=== PATIENT | female | born 1955 | race Caucasian/White ===

== ENCOUNTER → 2017-09-20 | Outpatient (CLI) | payer OTHER ==
[~2017-09-20] MED LIST: ALLOPURINOL 30300 M2 PO; AMBIEN 5 MG TABL5 M1 PO; ARMOUR THYROID60 M1 PO; CLEOCIN HCL150 MG PO; DIFLUCAN200 MG PO; HEPARIN SO1000 UNIT2 SUBQ; KLOR-CON 1010 MEQ PO; LEXAPRO20 MG PO; LOFIBRA134 MG PO; MAXZIDE-25 MG1 EACH PO; NEURONTIN 300300 M1 PO; ULTRACET TABLET1 TAB PO
== END ==
LOC: M.RAD 09:00
DX: R92.8 Other abnormal and inconclusive findings on diagnostic imaging of breast (principal); Z85.3 Personal history of malignant neoplasm of breast; Z17.0 Estrogen receptor positive status [ER+]

== ENCOUNTER → 2018-03-23 | Outpatient (CLI) | payer OTHER | LOC: M.RAD 10:28 | DX: R92.8 Other abnormal and inconclusive findings on diagnostic imaging of breast (principal) ==

== ENCOUNTER → 2018-12-24 | Outpatient (CLI) | payer OTHER | LOC: M.RAD 08:55 | DX: M85.89 Other specified disorders of bone density and structure, multiple sites (principal); C50.911 Malignant neoplasm of unspecified site of right female breast; Z79.811 Long term (current) use of aromatase inhibitors ==

== ENCOUNTER → 2019-04-03 | Outpatient (CLI) | payer OTHER | LOC: M.RAD 10:34 | DX: R92.1 Mammographic calcification found on diagnostic imaging of breast (principal); C50.911 Malignant neoplasm of unspecified site of right female breast; Z98.890 Other specified postprocedural states ==

== ENCOUNTER → 2020-03-12 | Outpatient (CLI) | payer OTHER ==
[2020-03-12 10:16] LABS: POTASSIUM 3.5 mmol/L (3.5-5.1)
== END ==
LOC: M.LAB 05:27
PROVIDERS: ATTEND Anesthesiology
DX: E87.6 Hypokalemia (principal); E11.9 Type 2 diabetes mellitus without complications

== ENCOUNTER → 2020-04-06 | Outpatient (CLI) | payer OTHER | LOC: M.RAD 09:49 | PROVIDERS: ATTEND Internal Medicine Hematology & Oncology | DX: C50.911 Malignant neoplasm of unspecified site of right female breast (principal); N64.89 Other specified disorders of breast ==

== ENCOUNTER → 2020-10-02 | Outpatient (CLI) | payer OTHER | LOC: M.ULTRA 09:14 | PROVIDERS: ATTEND Family Medicine | DX: K76.0 Fatty (change of) liver, not elsewhere classified (principal); K80.00 Calculus of gallbladder with acute cholecystitis without obstruction; R74.01 Elevation of levels of liver transaminase levels ==

== ENCOUNTER 2021-01-05 15:22 | Inpatient (IN) | payer OTHER ==
[~2021-01-05] VITALS: Ht 172.7 cm; Wt 72.3 kg
[2021-01-05 15:26] VITALS: BP 127/57
[2021-01-05 15:57] LABS: ABSOLUTE MONOCYTES 0.6 thou/uL (0.0-1.2); ABSOLUTE NEUTROPHILS 4.4 thou/uL (1.6-8.1); BASOPHILS 0.3 %; HEMATOCRIT 37.4 % (37.0-47.0); HEMOGLOBIN 13.1 gm/dL (12.0-15.0); LYMPHOCYTES 16.6 %; MCH 34.4 pg (26.0-34.0); MCV 98.1 fL (80.0-100.0); MONOCYTES 10.4 %; MPV 7.6 fl. (7.2-11.1); NUCLEATED RBCS 0 /100WBC; PLATELET COUNT* 138 thou/uL (150-400); POLYS 72.7 %; RBC 3.82 mil/uL (4.20-5.00)
[2021-01-05 16:10] LABS: CALCIUM 9.1 mg/dL (8.5-10.1); CREATININE 1.5 mg/dL (0.6-1.3); POTASSIUM 3.4 mmol/L (3.5-5.1)
[2021-01-05 16:26] LABS: ALBUMIN 3.7 g/dL (3.4-5.0); TOTAL BILIRUBIN 0.7 mg/dL (<0.1-1.0); TOTAL PROTEIN 8.1 g/dL (6.4-8.2)
[2021-01-05 20:00] VITALS: BP 121/59
[2021-01-05 20:15] VITALS: BP 117/79
[2021-01-05 23:47] VITALS: BP 115/58
[2021-01-06 05:01] VITALS: BP 114/61
--- NOTE | 2021-01-06 07:48 | NUR ---
PT ADMITTED TO ROOM 106 DURING INFORMATION SYSTEMS DIRECTOR; VSS, ON 15L O2 NON-REBREATHER, SR ON TELE, BEDREST FOR O2 DEMANDS, UP TO COMODE IS OK IF TOLERATED. SHE IS ABLE TO COMMUNICATE HER NEEDS TO STAFF WITH MINOR DIFFICULTY; SHE IS FORGETFUL AND A LITTLE CONFUSED (SHE FREQUENTLY REMOVES HER HEATED HIGH FLOW). SHE IS ON HEATED HIGH FLOW CANULA NOW.
[2021-01-06 08:40] VITALS: BP 124/66
--- NOTE | 2021-01-06 09:04 | NUR ---
PT IS ON ISO PRECAUTIONS D/T COVID. PT LIVES WITH FRIEND AMALIA, BRYSON SPK WITH AMALIA WHO INDICATED PT "MOVED IN" WITH HER AFTER PT "LOST HER JOB." IS NORMALLY ACTIVE AND INDEPENDENT AND USES NO DMES. ACCORDING TO SHARRI, SHE DOESNT RECALL PT USING SNF OR HH IN THE PAST; HOWEVER, PT USED OUTPATIENT THERAPY POST BREAST CA DX. CM TO CONT TO FOLLOW.
[2021-01-06 10:40] LABS: CALCIUM 8.6 mg/dL (8.5-10.1); CREATININE 1.2 mg/dL (0.6-1.3); MAGNESIUM 1.8 mg/dL (1.8-2.4); POTASSIUM 3.4 mmol/L (3.5-5.1)
[2021-01-06 12:01] VITALS: BP 121/57
--- NOTE | 2021-01-06 14:12 | EKG ---
[place] [address] ELECTROCARDIOGRAM REPORT Name: KEON YAN Room: [address] ADM IN .R.#: [id number] Admission: 01/05/21 Attend Phys: Jenae Bautista Discharge: Date of : 59 Date of Service: 01/05/21 1559 Report #: [id number] THIS REPORT FOR: //name// [facility] ED Test Date: 2021-01-05 Test Time: 15:59:33 Pat Name: KEON YAN Department: Room: [facility] Gender: F Project Management Professional: JOSE LUIS : 1955 Requested By: Morgan Fan Order Number: [id number] MD: Asa Rosado Measurements Intervals [place] Rate: 75 P: 38 CT: 167 QRS: 11 QRSD: 98 T: 35 QT: 411 QTc: 460 Interpretive Statements Sinus rhythm Inferior infarct, old cannot be excluded Compared to ECG 04/06/2015 07:48:34 No significant changes Electronically Signed On 01-06-2021 14:12:41 CDT by Asa Rosado [email or web address] <ELECTRONICALLY SIGNED> By: Asa Rosado MD, FAC 01/06/21 1412 1559 1559 Asa Rosado MD, FAC /EPI
[2021-01-06 17:53] VITALS: BP 135/61
[2021-01-06 20:59] VITALS: BP 131/52
[2021-01-07 01:25] VITALS: BP 124/53
[2021-01-07 04:25] VITALS: BP 129/93
--- NOTE | 2021-01-07 06:57 | NUR ---
PT IS ABLE TO COMMUNICATE HER NEEDS TO STAFF WITH MINOR DIFFICULTY; SHE CAN BE CONFUSED AT TIMES. SHE HAS DENIED THE NEED FOR PAIN MEDICATION UP TO THIS TIME. [facility]. SHE HAS SOME TREMOURS NOW; LIKELY D/T STEROIDS. HEATED GATO FLOW O2 MAINTAINED.
[2021-01-07 11:47] LABS: ABSOLUTE LYMPHOCYTES 0.6 thou/uL (0.8-5.3); ABSOLUTE MONOCYTES 0.5 thou/uL (0.0-1.2); ABSOLUTE NEUTROPHILS 5.2 thou/uL (1.6-8.1); BASOPHILS 0.1 %; HEMATOCRIT 33.5 % (37.0-47.0); HEMOGLOBIN 11.7 gm/dL (12.0-15.0); LYMPHOCYTES 9.4 %; MCH 34.1 pg (26.0-34.0); MCHC 35.1 g/dL (28.0-37.0); MCV 97.3 fL (80.0-100.0); MONOCYTES 7.7 %; MPV 7.7 fl. (7.2-11.1); NUCLEATED RBCS 0 /100WBC; PLATELET COUNT* 189 thou/uL (150-400); POLYS 82.8 %; RBC 3.44 mil/uL (4.20-5.00); RDW-CV 14.2 % (10.5-14.5); WBC 6.3 thou/uL (4.0-11.0)
[2021-01-07 11:51] LABS: CALCIUM 8.7 mg/dL (8.5-10.1); TOTAL BILIRUBIN 0.5 mg/dL (<0.1-1.0); TOTAL PROTEIN 7.1 g/dL (6.4-8.2)
[2021-01-07 11:54] LABS: POTASSIUM 2.7 mmol/L (3.5-5.1)
[2021-01-07 13:06] VITALS: BP 124/65
--- NOTE | 2021-01-07 13:54 | NUR ---
1156 informed of critical labs. 1222 New orders recieved
[2021-01-07 14:26] LABS: MAGNESIUM 1.8 mg/dL (1.8-2.4)
--- NOTE | 2021-01-07 15:44 | NUR ---
Md was paged the patient is c/o left shoulder and leg pain 03/21 and is c/o anxiety.
--- NOTE | 2021-01-07 16:03 | NUR ---
Barriers to discharge remains on O2 with SOA. May need O2 at home, will continue to follow for discharge needs.
[2021-01-07 17:02] VITALS: BP 116/68
[2021-01-07 20:19] VITALS: BP 107/72
[2021-01-08] VITALS (11 sets, daily range): BP systolic 117–155; BP diastolic 60–76
--- NOTE | 2021-01-08 05:27 | NUR ---
PT IS ABLE TO COMMUNICATE HER NEEDS TO STAFF WITH MINOR DIFFICULTY; SHE IS OFTEN FORGETFUL- REMOVING HER HHC O2 AND DOES NOT REMEMBER TO LEAVE IT ON. CURRENT PAIN MEDICATION REGIMEN HAS BEEN ADEQUATE FOR CONTROLLING HER PAIN UP TO THIS TIME. TREMOURS PERSIST.
--- NOTE | 2021-01-08 09:26 | NUR ---
barries to d/c consist of 50 lm optiflow. 100 % fio2. cont Remdesivir course. poc is to wean/titrate O2 as able.
--- NOTE | 2021-01-08 10:36 | NUR ---
Md contacted the patient requested to have oral potassium tablets instead of via intervenous.
--- NOTE | 2021-01-08 21:28 | NUR ---
PT TRANSFERED TO ICU ROOM #2 At 5124
[2021-01-09] VITALS (52 sets, daily range): BP systolic 125–178; BP diastolic 50–115
--- NOTE | 2021-01-09 02:38 | NUR ---
PT CONTINUALLY PULLING HEATED HI FLOW O2 OFF. PRESEDEX DRIP AT MAX DOSE. SPOKE TO DR MEHTA AND RECIEVED ORDER FOR ONE TO ONE SITTER.
[2021-01-09 10:30] LABS: ABSOLUTE LYMPHOCYTES 0.9 thou/uL (0.8-5.3); ABSOLUTE MONOCYTES 0.4 thou/uL (0.0-1.2); ABSOLUTE NEUTROPHILS 5.9 thou/uL (1.6-8.1); BASOPHILS 0.1 %; EOSINOPHILS 0.1 %; HEMATOCRIT 35.9 % (37.0-47.0); HEMOGLOBIN 12.3 gm/dL (12.0-15.0); LYMPHOCYTES 13.1 %; MCH 33.3 pg (26.0-34.0); MCHC 34.4 g/dL (28.0-37.0); MCV 96.9 fL (80.0-100.0); MONOCYTES 5.1 %; MPV 7.2 fl. (7.2-11.1); NUCLEATED RBCS 0 /100WBC; PLATELET COUNT* 223 thou/uL (150-400); POLYS 81.6 %; RDW-CV 14.4 % (10.5-14.5); WBC 7.2 thou/uL (4.0-11.0)
[2021-01-09 10:43] LABS: ALBUMIN 3.1 g/dL (3.4-5.0); CALCIUM 8.6 mg/dL (8.5-10.1); CREATININE 0.8 mg/dL (0.6-1.3); POTASSIUM 3.8 mmol/L (3.5-5.1); TOTAL BILIRUBIN 0.5 mg/dL (<0.1-1.0); TOTAL PROTEIN 7.1 g/dL (6.4-8.2)
--- NOTE | 2021-01-09 18:50 | NUR ---
Pt impulsive at times, and pulls at O2 intermittently, which leads to rapid O2 desaturation. Pt cooperative & pleasant, but forgetful; anxious at times as well. Unable to get accurate temperature via axillary and oral routes. Brownlee indicated for accurate I&O combined with intolerance to activity (very SOA and had severe coughing spell when up to [facility] this morning), so brownlee with Temp probe placed. T 94.8 initially, so Vick hugger placed. Late in shift T up to 96.8 so Vick hugger removed. Pt refused po meds this shift, and had only sips of iced tea and [place] Ensure. Remains on Precedex gtt, now running at 0.8 mcg. Will continue to monitor.
[2021-01-09 22:20] LABS: BE -2.3 mmol/L (-2 to +3); PCO2 30.9 mmHg (35.0-45.0); PO2 83.4 mmHg (75.0-100.0); pH 7.444 (7.340-7.450)
[2021-01-10] VITALS (50 sets, daily range): BP systolic 129–174; BP diastolic 52–83
[2021-01-10 08:06] LABS: MCH 33.4 pg (26.0-34.0); MCHC 34.2 g/dL (28.0-37.0); MCV 97.6 fL (80.0-100.0); MPV 7.2 fl. (7.2-11.1); RBC 3.9 mil/uL (4.20-5.00); RDW-CV 14.1 % (10.5-14.5); WBC 6.7 thou/uL (4.0-11.0)
[2021-01-10 08:17] LABS: CALCIUM 7.7 mg/dL (8.5-10.1); CREATININE 0.8 mg/dL (0.6-1.3); POTASSIUM 3.6 mmol/L (3.5-5.1)
--- NOTE | 2021-01-10 18:36 | NUR ---
ASSUMED CARE OF PATIENT AT 0700. PT NON TOLORANT OF THE HHF, DESTATTING INTO THE 70'S AND UNABLE TO GET PAST 84%. DOING BETTER ON BIPAP LONG SHE KEEPS IT ON. CURRENTLY AT 93%. PT IMPULSIVE AND PULLS AT EQUIPMENT CONSTANTLY. PT SB ALL OF MY SHIFT. WAS ABLE TO TITRATE DOWN ON THE PRESIDEX, WITH THE ADDITION OF ATIVAN PUSHES. FED PT SIPS OF ENSURE. PATIENT DOES NOT WANT TO BE BE VENTED IF NEED BE. HER STATUS CHANGED TO A NO CODE.
[2021-01-10 19:10] LABS: BE 0 mmol/L (-2 to +3); PCO2 31.8 mmHg (35.0-45.0); PO2 75.2 mmHg (75.0-100.0); pH 7.473 (7.340-7.450)
[2021-01-11] VITALS (67 sets, daily range): BP systolic 75–174; BP diastolic 36–102
[2021-01-11 03:19] LABS: HEMATOCRIT 37.2 % (37.0-47.0); HEMOGLOBIN 12.7 gm/dL (12.0-15.0); MCH 33.2 pg (26.0-34.0); MCHC 34.1 g/dL (28.0-37.0); MCV 97.4 fL (80.0-100.0); RBC 3.82 mil/uL (4.20-5.00); WBC 7.9 thou/uL (4.0-11.0)
[2021-01-11 03:27] LABS: CALCIUM 7.6 mg/dL (8.5-10.1); CREATININE 0.8 mg/dL (0.6-1.3); POTASSIUM 3.5 mmol/L (3.5-5.1)
--- NOTE | 2021-01-11 10:28 | NUR ---
barriers to dc: pt cont on hi flow & precedex gtt. pt needed 1:1 sitter as pt continuously tried to "pull of hi flow."
[2021-01-11 12:32] LABS: APTT 23.9 Seconds (25.0-31.3); INR 1.3; PROTIME 12.7 Seconds (9.20-11.50)
[2021-01-11 17:13] LABS: CALCIUM 7.9 mg/dL (8.5-10.1); CREATININE 0.8 mg/dL (0.6-1.3); POTASSIUM 3.5 mmol/L (3.5-5.1)
[2021-01-12] VITALS (24 sets, daily range): BP systolic 109–157; BP diastolic 60–87
[2021-01-12 03:24] LABS: HEMATOCRIT 38.4 % (37.0-47.0); MCHC 33.8 g/dL (28.0-37.0); MCV 97.7 fL (80.0-100.0); MPV 7.2 fl. (7.2-11.1); NUCLEATED RBCS 0 /100WBC; PLATELET COUNT* 209 thou/uL (150-400); RBC 3.94 mil/uL (4.20-5.00); RDW-CV 13.9 % (10.5-14.5); WBC 8.5 thou/uL (4.0-11.0)
[2021-01-12 03:48] LABS: ALBUMIN 2.8 g/dL (3.4-5.0); CALCIUM 7.7 mg/dL (8.5-10.1); CREATININE 0.9 mg/dL (0.6-1.3); POTASSIUM 3.7 mmol/L (3.5-5.1); TOTAL BILIRUBIN 0.6 mg/dL (<0.1-1.0)
[2021-01-12 05:53] LABS: ABSOLUTE LYMPHOCYTES 0.4 thou/uL (0.8-5.3); ABSOLUTE MONOCYTES 0.2 thou/uL (0.0-1.2); ABSOLUTE NEUTROPHILS 7.9 thou/uL (1.6-8.1); ANISOCYTOSIS 1+; PLATELET ESTIMATE ADEQUATE; POIKILOCYTOSIS 1+
--- NOTE | 2021-01-12 13:14 | NUR ---
barriers to dc: pt on precedex gtt. possible plan to have NG tube placed for vanc. however, d/t behaviors doctor has concerns that pt may pull at tube.
--- NOTE | 2021-01-12 13:17 | NUR ---
barries to dc: high o2 requirements and precedex.
--- NOTE | 2021-01-12 14:50 | 2DMMODE ---
[place] [address] 2 D/M-MODE ECHOCARDIOGRAM Name: KEON YAN Room: 002 ADM IN M.R.#: [id number] Admission: 01/05/21 Attend Phys: Jenae Bautista Discharge: Date of : 59 Date of Service: 01/12/21 1449 Report #: [id number] THIS REPORT FOR: cc: JOEL ARGUETA NP, RN, LPC, DIANA NP RN LPC Biggs, F. Douglas MD MERGED WITH [facility] ~ APPROVED REPORT Study performed: 01/12/2021 11:03:30 EXAM: Comprehensive 2D, Doppler, and color-flow Echocardiogram Patient Location: In-Patient Room #: 002 Status: routine BSA: 1.89 HR: 55 bpm BP: 117/60 mmHg Rhythm: NSR Indications Dyspnea 2D Dimensions IVSd: 11.49 (7-11mm) LVOT Diam: 19.76 (18-24mm) LVDd: 41.16 mm PWd: 9.22 (7-11mm) LVDs: 22.06 (25-40mm) Aortic Root: 31.55 mm Volumes Left Atrial Volume (Systole) LA ESV Index: 13.40 mL/m2 Aortic Valve AoV Peak Byron.: 1.47 m/s AO Peak Gr.: 8.68 mmHg LVOT Max P.32 mmHg AO Mean Gr.: 4.38 mmHg LVOT Mean P.50 mmHg LVOT Max V: 0.91 m/s AO V2 VTI: 31.13 cm LVOT Mean V: 0.56 m/s RAMONA (VTI): 2.13 cm2 LVOT V1 VTI: 21.58 cm Mitral Valve E/A Ratio: 1.14 MV Decel. Time: 281.78 [place] [address] 2 D/M-MODE ECHOCARDIOGRAM Name: KEON YAN Room: [address] IN M.R.#: [id number] Admission: 01/05/21 Attend Phys: Jenae Bautista Discharge: Date of : 59 Date of Service: 01/12/21 1449 Report #: [id number] MV E Max Byron.: 0.78 m/s MV PHT: 81.72 ms MVA (PHT): 2.69 cm2 TDI E/Lateral E': 9.75 E/Medial E': 9.75 Medial E' Byron.: 0.08 m/s Lateral E' Byron.: 0.08 m/s Pulmonary Valve PV Peak Byron.: 1.08 m/s PV Peak Gr.: 4.68 mmHg Tricuspid Valve RAP Estimate: 5.00 mmHg TR Peak Gr.: 21.35 mmHg RVSP: 26.00 mmHg PA Pressure: 26.00 mmHg Left Ventricle The left ventricle is normal size. There is normal LV segmental wall motion. There is normal left ventricular wall thickness. Left ventricular systolic function is normal. The left ventricular ejection fraction is within the normal range. LVEF is 60-65%. The left ventricular diastolic function is normal. Right Ventricle The right ventricle is normal size. The right ventricular systolic function is normal. Atria The left atrium size is normal. The right atrium size is normal. Aortic Valve Mild aortic valve sclerosis. No aortic regurgitation is present. There is no aortic valvular stenosis. Mitral Valve The mitral valve is normal in structure. There is no mitral valve regurgitation noted. No evidence of mitral valve stenosis. Tricuspid Valve The tricuspid valve is normal in structure. Mild tricuspid regurgitation. Mild pulmonary hypertension. Pulmonic Valve The pulmonary valve is normal in structure. There [place] [address] 2 D/M-MODE ECHOCARDIOGRAM Name: KEON YAN Room: [address] IN [facility].#: [id number] Admission: 01/05/21 Attend Phys: Jenae Bautista Discharge: Date of : 59 Date of Service: 01/12/21 1449 Report #: [id number] valvular regurgitation. Great Vessels The aortic root is normal in size. IVC is normal in size and collapses >50% with inspiration. Pericardium There is no pericardial effusion. <Conclusion> LVEF is 60-65%. The left ventricular diastolic function is normal. There is normal left ventricular wall thickness. The left ventricle is normal size. There is normal LV segmental wall motion. Mild aortic valve sclerosis. No aortic regurgitation is present. There is no aortic valvular stenosis. There is no mitral valve regurgitation noted. Mild tricuspid regurgitation. Mild pulmonary hypertension. <ELECTRONICALLY SIGNED> By: Mukesh Morley MD, FACC 01/12/21 1449 1449 1449 Mukesh Morley MD, FACC /INF
[2021-01-12 17:28] LABS: CALCIUM 8.5 mg/dL (8.5-10.1); CREATININE 0.8 mg/dL (0.6-1.3); POTASSIUM 3.6 mmol/L (3.5-5.1)
[2021-01-13] VITALS (28 sets, daily range): BP systolic 69–179; BP diastolic 41–91
[2021-01-13 03:38] LABS: ABSOLUTE EOSINOPHILS 0.1 thou/uL (0.0-0.7); ABSOLUTE LYMPHOCYTES 0.7 thou/uL (0.8-5.3); ABSOLUTE MONOCYTES 0.2 thou/uL (0.0-1.2); ABSOLUTE NEUTROPHILS 7.4 thou/uL (1.6-8.1); EOSINOPHILS 1.7 %; HEMATOCRIT 38.8 % (37.0-47.0); HEMOGLOBIN 13.2 gm/dL (12.0-15.0); LYMPHOCYTES 8.1 %; MCH 33.3 pg (26.0-34.0); MCHC 33.9 g/dL (28.0-37.0); MCV 98.2 fL (80.0-100.0); MONOCYTES 2.3 %; MPV 7.1 fl. (7.2-11.1); NUCLEATED RBCS 0 /100WBC; PLATELET COUNT* 208 thou/uL (150-400); POLYS 87.9 %; RBC 3.95 mil/uL (4.20-5.00); RDW-CV 14.3 % (10.5-14.5); WBC 8.5 thou/uL (4.0-11.0)
[2021-01-13 03:55] LABS: ALBUMIN 3.3 g/dL (3.4-5.0); CALCIUM 8.7 mg/dL (8.5-10.1); CREATININE 0.9 mg/dL (0.6-1.3); MAGNESIUM 1.8 mg/dL (1.8-2.4); POTASSIUM 4.3 mmol/L (3.5-5.1); TOTAL BILIRUBIN 0.8 mg/dL (<0.1-1.0); TOTAL PROTEIN 6.5 g/dL (6.4-8.2)
--- NOTE | 2021-01-13 15:10 | NUR ---
ICU Rounds: Patient remains on high flow (FiO2 100%) and uses bipap when needed. Continued IV abx and steroids. 1 or 4 doses given for remdesevir. 2nd dose to be given today. Patient wants to complete DPOA. She would like to appoint her sister Delmy Tompkins (ph: [phone]). Spoke to Delmy who agreed to be DPOA (medical). Paperwork completed by nursing and case management. Patient is currently a no code at this time. CM to continue to follow
[2021-01-14] VITALS (45 sets, daily range): BP systolic 54–136; BP diastolic 34–73
[2021-01-14 03:36] LABS: ABSOLUTE EOSINOPHILS 0.2 thou/uL (0.0-0.7); ABSOLUTE LYMPHOCYTES 0.7 thou/uL (0.8-5.3); ABSOLUTE MONOCYTES 0.2 thou/uL (0.0-1.2); ABSOLUTE NEUTROPHILS 8.9 thou/uL (1.6-8.1); BASOPHILS 0.1 %; EOSINOPHILS 2.1 %; HEMATOCRIT 39.5 % (37.0-47.0); HEMOGLOBIN 13.4 gm/dL (12.0-15.0); MCH 33.5 pg (26.0-34.0); MCHC 34.1 g/dL (28.0-37.0); MCV 98.3 fL (80.0-100.0); MONOCYTES 1.9 %; MPV 7.3 fl. (7.2-11.1); NUCLEATED RBCS 0 /100WBC; PLATELET COUNT* 190 thou/uL (150-400); POLYS 88.9 %; RBC 4.01 mil/uL (4.20-5.00); RDW-CV 14.3 % (10.5-14.5)
[2021-01-14 03:54] LABS: ALBUMIN 3.3 g/dL (3.4-5.0); MAGNESIUM 2.2 mg/dL (1.8-2.4); POTASSIUM 4.6 mmol/L (3.5-5.1); TOTAL BILIRUBIN 0.8 mg/dL (<0.1-1.0); TOTAL PROTEIN 6.5 g/dL (6.4-8.2)
--- NOTE | 2021-01-14 10:28 | NUR ---
ICU Rounds: Patient remains on bipap (FiO2 70%). Continued precedex, abx and steroids. 3rd dose of remdesevir to be given today (4 total). DPOA paperwork completed yesterday.
--- NOTE | 2021-01-14 11:22 | NUR ---
Nutrition: Pt admitted with COVID. Assessed for LOS. Spoke with RN. Pt eating well, feeling better. On hi-anneliese. Wt: 165#. Alb 3.3, prealb 29.3, BG 158. Regular diet. On remdesivir. No nutrition needs at this time. Low risk.
--- NOTE | 2021-01-14 20:07 | NUR ---
ASSUMED CARE AT 0700. ALL ASSESSMENTS COMPLETED CHARTED. HIGH FALL RISK PRECAUTIONS IN PLACE. PT WAS ABLE TO TOLORATE THE HEATED HIGH FLOW MOST OF MY SHIFT, FEW BRIEF PERIODS OF BIPAP. NO BM. STILL CURRENTLY ON PRESIDEX.
[2021-01-15] VITALS (45 sets, daily range): BP systolic 82–155; BP diastolic 33–104
--- NOTE | 2021-01-15 08:52 | NUR ---
ICU Rounds: Patient on bipap overnight (FiO2 70%). Will attempt HHF during the day as tolerated. Continued precedex, steroids and abx. 3 of 4 doses of remdesevir given. 4th dose to be given today. Patient will stay through the weekend. CM to continue to follow for safe dc planning
[2021-01-15 09:38] LABS: CALCIUM 8.6 mg/dL (8.5-10.1); CREATININE 0.8 mg/dL (0.6-1.3)
[2021-01-16] VITALS (48 sets, daily range): BP systolic 85–180; BP diastolic 32–85
[2021-01-16 03:27] LABS: HEMATOCRIT 40.8 % (37.0-47.0); HEMOGLOBIN 13.3 gm/dL (12.0-15.0); MCH 32.5 pg (26.0-34.0); MCHC 32.6 g/dL (28.0-37.0); MCV 99.7 fL (80.0-100.0); MPV 7.6 fl. (7.2-11.1); NUCLEATED RBCS 0 /100WBC; PLATELET COUNT* 172 thou/uL (150-400); RBC 4.09 mil/uL (4.20-5.00); RDW-CV 14.7 % (10.5-14.5); WBC 11.2 thou/uL (4.0-11.0)
[2021-01-16 03:41] LABS: ALBUMIN 3.2 g/dL (3.4-5.0); CALCIUM 8.5 mg/dL (8.5-10.1); CREATININE 0.9 mg/dL (0.6-1.3); MAGNESIUM 1.6 mg/dL (1.8-2.4); POTASSIUM 4.1 mmol/L (3.5-5.1); TOTAL BILIRUBIN 0.7 mg/dL (<0.1-1.0); TOTAL PROTEIN 6.4 g/dL (6.4-8.2)
[2021-01-16 04:01] LABS: ABSOLUTE EOSINOPHILS 0.2 thou/uL (0.0-0.7); ABSOLUTE LYMPHOCYTES 0.4 thou/uL (0.8-5.3); ABSOLUTE NEUTROPHILS 10.5 thou/uL (1.6-8.1)
[2021-01-16 04:04] LABS: PLATELET ESTIMATE ADEQUATE
[2021-01-17] VITALS (43 sets, daily range): BP systolic 53–186; BP diastolic 25–162
[2021-01-17 03:10] LABS: CALCIUM 9.3 mg/dL (8.5-10.1); CREATININE 0.9 mg/dL (0.6-1.3); MAGNESIUM 1.9 mg/dL (1.8-2.4); POTASSIUM 3.9 mmol/L (3.5-5.1)
[2021-01-17 03:15] LABS: ABSOLUTE LYMPHOCYTES 0.6 thou/uL (0.8-5.3); ABSOLUTE MONOCYTES 0.3 thou/uL (0.0-1.2); ABSOLUTE NEUTROPHILS 10.2 thou/uL (1.6-8.1); EOSINOPHILS 0.1 %; HEMATOCRIT 40.2 % (37.0-47.0); HEMOGLOBIN 13.2 gm/dL (12.0-15.0); LYMPHOCYTES 5.4 %; MCH 32.3 pg (26.0-34.0); MCHC 32.9 g/dL (28.0-37.0); MCV 98.4 fL (80.0-100.0); MONOCYTES 2.4 %; MPV 7.9 fl. (7.2-11.1); NUCLEATED RBCS 0 /100WBC; PLATELET COUNT* 148 thou/uL (150-400); POLYS 92.1 %; RBC 4.08 mil/uL (4.20-5.00); RDW-CV 14.5 % (10.5-14.5); WBC 11.1 thou/uL (4.0-11.0)
[2021-01-18] VITALS (21 sets, daily range): BP systolic 94–158; BP diastolic 35–108
[2021-01-18 03:33] LABS: HEMATOCRIT 39.1 % (37.0-47.0); HEMOGLOBIN 12.9 gm/dL (12.0-15.0); MCH 32.5 pg (26.0-34.0); MCV 98.3 fL (80.0-100.0); RBC 3.98 mil/uL (4.20-5.00); RDW-CV 14.5 % (10.5-14.5); WBC 13.7 thou/uL (4.0-11.0)
[2021-01-18 03:43] LABS: CALCIUM 8.8 mg/dL (8.5-10.1); CREATININE 0.9 mg/dL (0.6-1.3); POTASSIUM 4.5 mmol/L (3.5-5.1)
--- NOTE | 2021-01-18 13:18 | NUR ---
ICU Rounds: Patient remains on bipap (FiO2 55%). Patient has removed bipap at different times due to not wanting to wear it. Continued steroids and precedex.
--- NOTE | 2021-01-18 20:07 | NUR ---
ASSUMED CARE AT 0700. PT HAD AN EPISODE WHEN TRANSFERRING TO CHAIR. BP DROPPED, AND DESTATTED TO AN O2 OF 30. PATIENT POSSIBLY HAD A VAGUL MANUVER WHEN STANDING UP. TOOK A LONG TIME TO RECOVER (ON THE BIPAP), BUT EVENTUALLY DID. PRESSOR ON STAND BY. SISTER UPDATED ON PHONE.
[2021-01-19] VITALS (27 sets, daily range): BP systolic 68–190; BP diastolic 38–76
[2021-01-19 04:25] LABS: ALBUMIN 3.4 g/dL (3.4-5.0); CALCIUM 9.1 mg/dL (8.5-10.1); CREATININE 0.8 mg/dL (0.6-1.3); MAGNESIUM 1.4 mg/dL (1.8-2.4); POTASSIUM 4.3 mmol/L (3.5-5.1); TOTAL BILIRUBIN 0.8 mg/dL (<0.1-1.0); TOTAL PROTEIN 6.2 g/dL (6.4-8.2)
[2021-01-19 04:29] LABS: HEMATOCRIT 38.1 % (37.0-47.0); MCH 33.4 pg (26.0-34.0); MCHC 34.1 g/dL (28.0-37.0); MCV 97.9 fL (80.0-100.0); MPV 8.6 fl. (7.2-11.1); NUCLEATED RBCS 0 /100WBC; PLATELET COUNT* 128 thou/uL (150-400); RBC 3.89 mil/uL (4.20-5.00); RDW-CV 14.7 % (10.5-14.5); WBC 13.8 thou/uL (4.0-11.0)
[2021-01-19 06:19] LABS: ABSOLUTE LYMPHOCYTES 0.4 thou/uL (0.8-5.3); ABSOLUTE MONOCYTES 0.1 thou/uL (0.0-1.2); ABSOLUTE NEUTROPHILS 13.2 thou/uL (1.6-8.1); PLATELET ESTIMATE DECREASED
[2021-01-19 06:20] LABS: ANISOCYTOSIS 1+; POIKILOCYTOSIS 1+
--- NOTE | 2021-01-19 07:08 | NUR ---
TITRATED PRECIDEX FOR PT COMFORT PT WAS ABLE TO TOLERATE DRIP TITRATION AND DRIP WAS TURN OFF APPROX 0500.
--- NOTE | 2021-01-19 14:33 | NUR ---
ICU Rounds: Patient currently on bipap but patient removes bipap which decreases her O2 sats. Provider team has reinforced the importance of wearing bipap to support O2 needs. Atiya added to patients MAR. Marshall spoke to sister Delmy about comfort measures if patient will not keep bipap on. Sister agreeable with plan of care. Continued steroids and precedex. Patient is a DNI/DNR.
--- NOTE | 2021-01-19 17:44 | NUR ---
RESUMED CARE AT 0700. PT TOLORATED THIS AFTERNOON THE HIGHFLOW WITH REBREATHER AND STAYED IN THE 90'S UNLESS PULLED OFF. PATIENT PULLS OFF OXYGEN, AND ALL EQUIPMENT CONSTANTLY. WHEN PATIENT REMOVES OXYGEN SHE DESTATS DRASTICALLY. NO BM. 425 OUT CLARK. CARDIAC MONITORING IN PLACE; HIGH FALL RISK PRECAUTIONS IN PLACE FOR PATIENT'S SAFETY. SISTER UPDATED ON PHONE.
[2021-01-19 17:49] LABS: URINE BILIRUBIN NEGATIVE (Negative); URINE BLOOD 3+ (Negative); URINE CLARITY CLOUDY; URINE COLOR DARK YELLOW; URINE GLUCOSE-RANDOM NEGATIVE (Negative); URINE KETONES TRACE (Negative); URINE LEUKOCYTES-REFLEX NEGATIVE (Negative); URINE NITRITE-REFLEX NEGATIVE (Negative); URINE PROTEIN 1+ (Negative); URINE SPECIFIC GRAVITY >= 1.030 (1.005-1.030); URINE UROBILINOGEN 0.2 E.U./dl (0.2-1.0)
[2021-01-19 18:18] LABS: BACTERIA-REFLEX 1-9 Few /HPF (None Seen); SQUAMOUS 0-3 Few /LPF (0-3); URINE RBC >20 Many /HPF (0-2); URINE WBC-REFLEX 0-5 Rare /HPF (0-5)
[2021-01-19 18:19] LABS: CALCIUM OXALATE 0-3 Few /LPF (None Seen); CASTS None Seen /LPF (None Seen)
[2021-01-20] VITALS (34 sets, daily range): BP systolic 100–152; BP diastolic 49–73
[2021-01-20 04:04] LABS: ALBUMIN 3.2 g/dL (3.4-5.0); CALCIUM 8.8 mg/dL (8.5-10.1); CREATININE 0.9 mg/dL (0.6-1.3); MAGNESIUM 1.7 mg/dL (1.8-2.4); POTASSIUM 4.3 mmol/L (3.5-5.1); TOTAL BILIRUBIN 0.7 mg/dL (<0.1-1.0); TOTAL PROTEIN 5.8 g/dL (6.4-8.2)
[2021-01-20 04:33] LABS: ABSOLUTE LYMPHOCYTES 0.7 thou/uL (0.8-5.3); ABSOLUTE MONOCYTES 0.3 thou/uL (0.0-1.2); ABSOLUTE NEUTROPHILS 9.6 thou/uL (1.6-8.1); BASOPHILS 0.1 %; HEMATOCRIT 35.8 % (37.0-47.0); HEMOGLOBIN 12.3 gm/dL (12.0-15.0); LYMPHOCYTES 6.7 %; MCH 33.8 pg (26.0-34.0); MCHC 34.5 g/dL (28.0-37.0); MCV 98.1 fL (80.0-100.0); MONOCYTES 2.7 %; MPV 9.1 fl. (7.2-11.1); NUCLEATED RBCS 0 /100WBC; PLATELET COUNT* 106 thou/uL (150-400); POLYS 90.5 %; RBC 3.65 mil/uL (4.20-5.00); RDW-CV 14.6 % (10.5-14.5); WBC 10.6 thou/uL (4.0-11.0)
--- NOTE | 2021-01-20 09:06 | NUR ---
ICU Rounds: Patient remains on HF NC (15L) with hiflow mask (98% FiO2). Continued levo, precedex and steroids.
--- NOTE | 2021-01-20 18:44 | NUR ---
ASSUMED CARE OF PT AT 0700. PT DESATURATED AROUND 10AM AFTER REMOVING HFNC AND OXYGEN MASK, PROVIDERS NOTIFIED, PT PLACED ON BIPAP BRIEFLY, OXYGEN SATURATION IMPROVED. PT NOTED TO HAVE DIMINISHED RUL, PROVIDERS AWARE. PT WAS SWITCHED TO HEATED HFNC WITH SUPPLEMENTAL NRB NEEDED, OXYGEN SATURATION >90 MAINTAINED. PT NOTED TO HAVE R SIDE HEMATOMA, PT'S PLT COUNT TRENDED DOWN, PROVIDERS AWARE, NO NEW ORDERS AT THIS TIME. 2GM MG GIVEN. COVID SWAB SENT, HEP PLT DRAWN. PT IS CURRENTLY ON HFCNC 25%, FIO2 100%, USING NRB NEEDED. PRECEDEX GTT AT 0.8.
[2021-01-21] VITALS (46 sets, daily range): BP systolic 87–171; BP diastolic 44–81
[2021-01-21 03:24] LABS: ABSOLUTE LYMPHOCYTES 0.6 thou/uL (0.8-5.3); ABSOLUTE MONOCYTES 0.2 thou/uL (0.0-1.2); ABSOLUTE NEUTROPHILS 10.4 thou/uL (1.6-8.1); HEMATOCRIT 35.6 % (37.0-47.0); HEMOGLOBIN 11.9 gm/dL (12.0-15.0); LYMPHOCYTES 5.1 %; MCH 32.7 pg (26.0-34.0); MCHC 33.5 g/dL (28.0-37.0); MCV 97.8 fL (80.0-100.0); MONOCYTES 1.7 %; MPV 8.2 fl. (7.2-11.1); NUCLEATED RBCS 0 /100WBC; PLATELET COUNT* 75 thou/uL (150-400); POLYS 93.2 %; RBC 3.64 mil/uL (4.20-5.00); RDW-CV 14.3 % (10.5-14.5); WBC 11.2 thou/uL (4.0-11.0)
[2021-01-21 03:41] LABS: ALBUMIN 2.9 g/dL (3.4-5.0); CALCIUM 8.4 mg/dL (8.5-10.1); CREATININE 0.7 mg/dL (0.6-1.3); MAGNESIUM 1.6 mg/dL (1.8-2.4); POTASSIUM 3.9 mmol/L (3.5-5.1); TOTAL BILIRUBIN 0.6 mg/dL (<0.1-1.0); TOTAL PROTEIN 5.7 g/dL (6.4-8.2)
--- NOTE | 2021-01-21 06:05 | NUR ---
PT SLEPT ON AND OFF THIS SHIFT, PULLING OFF OXYGEN AT TIMES. ASSESSMENT DOCUMENTED. MEDS GIVEN PER E-MAR. IV PATENT, PRECEDEX INFUSING. FALL PRECAUTIONS IN PLACE. PT ON HHFNC 25L AT 100% WITH NON REBREATHER OVER IT. PT USING CALL LIGHT APPROPRIATLY AT TIMES.
--- NOTE | 2021-01-21 09:24 | NUR ---
ICU ROUNDS: PT CONT ON 15L NRB MASK. PT CONT ON LEVO AND PRECEDEX. PT OK TO D/C FROM ICU PER DR. COLBY, NEEDING PULM TO CLEAR ALSO PRIOR TO MOVING PT TO THE COVID UNIT.
[2021-01-22] VITALS (17 sets, daily range): BP systolic 88–168; BP diastolic 44–87
--- NOTE | 2021-01-22 04:05 | NUR ---
ASSUMED PATIENT CARE AT 1900. ASSESSMENTS COMPLETED CHARTED. CARDIAC MONITORING IN PLACE. HOURLY ROUNDING IN PLACE FOR PATIENT SAFETY. FALL PRECAUTIONS IN PLACE FOR PATIENT SAFETY. BED LOCKED AN LOWEST POSITION. BED ALARM ON. CLWR.
[2021-01-22 05:01] LABS: ABSOLUTE LYMPHOCYTES 0.7 thou/uL (0.8-5.3); ABSOLUTE MONOCYTES 0.3 thou/uL (0.0-1.2); ABSOLUTE NEUTROPHILS 10.4 thou/uL (1.6-8.1); EOSINOPHILS 0.1 %; HEMOGLOBIN 12.2 gm/dL (12.0-15.0); LYMPHOCYTES 5.9 %; MCH 32.9 pg (26.0-34.0); MCHC 33.8 g/dL (28.0-37.0); MCV 97.4 fL (80.0-100.0); MONOCYTES 2.6 %; MPV 8.4 fl. (7.2-11.1); NUCLEATED RBCS 0 /100WBC; PLATELET COUNT* 67 thou/uL (150-400); POLYS 91.4 %; RDW-CV 14.4 % (10.5-14.5); WBC 11.3 thou/uL (4.0-11.0)
[2021-01-22 05:25] LABS: APTT 22.2 Seconds (25.0-31.3); INR 1.1; PROTIME 11.8 Seconds (9.20-11.50)
[2021-01-22 05:27] LABS: ALBUMIN 2.9 g/dL (3.4-5.0); CALCIUM 8.7 mg/dL (8.5-10.1); CREATININE 0.7 mg/dL (0.6-1.3); POTASSIUM 4.4 mmol/L (3.5-5.1); TOTAL BILIRUBIN 0.7 mg/dL (<0.1-1.0); TOTAL PROTEIN 5.9 g/dL (6.4-8.2)
[2021-01-22 06:01] LABS: BE 0.5 mmol/L (-2 to +3); PCO2 35.1 mmHg (35.0-45.0); pH 7.454 (7.340-7.450)
[2021-01-22 06:04] LABS: PO2 44.1 mmHg (75.0-100.0)
--- NOTE | 2021-01-22 16:00 | NUR ---
ICU Rounds: Patient to downgrade to tele today. Patient uses bipap and HF interchangeably depending on O2 needs. Currently on HF. (FiO2 10% and 55L). PT and OT ordered today to help with dc planning. Patient may need O2 at discharge. Patient to remain through the weekend. CM to continue to follow
--- NOTE | 2021-01-22 19:33 | NUR ---
Pt transferred from ICU early this afternoon. Pt on HHF, and supplemented with NRB mask at times. Desats quickly with activity (up to BSC for BM) or when O2 off (pt continues to remove O2 intermittently). Receiving lorazepam prn. Pt is pleasant and oriented, though forgetful. VSS stable otherwise. Is very weak with transfer to [facility]. Will continue to monitor.
[2021-01-23] VITALS (7 sets, daily range): BP systolic 130–189; BP diastolic 67–90
--- NOTE | 2021-01-23 04:35 | NUR ---
ASSUMED PT CARE AT APPROX 1930. PT IS AWAKE, ORIENTED TO SELF, PLACE AND SITUATION. PT IS TRACING SR/ST ON THE FAMILY COUNSELOR. PT IS ON 55L/100% FIO2 HEATED HIGH FLOW O2, WITH 15L NON REBREATHER. PT IS FORGETFUL AND IS IMPULSIVE, PT TAKES O2 OFF NUMBER TIMES THIS SHIFT AND WOULD DESATURATE. PT PULLED OUT CLARK CATHETER WELL, NO BLEEDING NOTED, PT IS ABLE TO URINATE THEREAFTER. PT IS CLOSELY MONITORED. HIGH FALL PRECAUTIONS IN PLACE.
--- NOTE | 2021-01-23 16:10 | NUR ---
Pt continues to be intermittently confused; pulling off O2 intermittently, especially when feeling SOA. Pt desaturates rapidly when off O2. Pt also set off alarm twice while getting up to use BSC. Pt has had two soft BMs, but unable to void after multiple attempts. Bladder scan showed >600 ml. Saha placed, at least 800 ml clear ki urine out soon afterwards. Midodrine doses held today due to elevated BPs. Will continue to monitor.
[2021-01-24 04:30] VITALS: BP 148/83
--- NOTE | 2021-01-24 05:39 | NUR ---
ASSUMED PT CARE AT APPROX 1930. PT IS AWAKE, ORIENTED TO SELF, PLACE AND SITUATION. PT IS TRACING SR/ST ON THE DIRECTOR OF RETAIL. PT IS ON 55L/100% FIO2 HEATED HIGH FLOW O2, WITH 15L NON REBREATHER. PT IS FORGETFUL AND IS IMPULSIVE, PT TAKES O2 OFF NUMBER TIMES THIS SHIFT AND WOULD DESATURATE. PT WAS BRIEFLY PUT ON THE BIPAP BY RT TO KEEP SPO2 >90%. PT WAS PUT BACK ON HHFNC+NRB SHORTLY AFTER AND PT IS ABLE TO KEEP spO2 >90%. PT IS CLOSELY MONITORED.
[2021-01-24 08:10] VITALS: BP 152/77
[2021-01-24 14:05] VITALS: BP 136/63
[2021-01-24 17:04] VITALS: BP 130/77
--- NOTE | 2021-01-24 18:20 | NUR ---
PATIENT INTERMITTENTLY CONFUSED. IMPLUSIVE, EASILY REDIRECTED. PULLS OFF OXYGEN MASK SEVEREAL TIMES TODAY. IV REPLACED DUE TO PATIENT PULLING IV OUT EARLIER IN SHIFT. SPOKE WITH DPOA TODAY WITH UPDATE.
[2021-01-24 20:20] VITALS: BP 134/72
[2021-01-25 02:42] VITALS: BP 146/70
[2021-01-25 05:00] VITALS: BP 141/69
--- NOTE | 2021-01-25 05:47 | NUR ---
PT SLEPT FAIRLY WELL AFTER HS MEDS OVERNIGHT, OCCASIONALLY PULLING OFF NRB MASK AND DESATS. MUCH IMPROVED FROM LAST NIGHT PER STAFF THAT HELPED WITH CARES LAST NIGHT. HS ACCUCHECK ,NO INSULIN GIVEN. RAC CHANA. TELE SR. AO TO SELF AND SITUATION, FORGETFUL AND MORE IMPULSIVE THIS MORNING THAN HAS BEEN EARLIER IN SHIFT. LORAZEPAM PRN GIVEN THIS MORNING. NO LABS THIS MORNING. CLARK DRAINING YELLOW URINE. NRB MASK 100% OVERNIGHT. PT TURNED AND REPOSITIONED Q2 HOURS AND PRN FOR SKIN CARE AND COMFOR. DRSG CDI TO BUTTOCKS. LARGE HEMATOMA PRESENT TO R SIDE ABD. DNR. CALL LITE IN EASY REACH.
[2021-01-25 08:10] VITALS: BP 133/70
--- NOTE | 2021-01-25 15:16 | NUR ---
Covid positive. Anticipate dc in a few days. On 15L NRB. Stable. Pt is DNR status. Pt to see today.
[2021-01-25 15:57] VITALS: BP 123/63
--- NOTE | 2021-01-25 16:05 | NUR ---
WOUND NURSE: PATIENT SEEN TO ADDRESS LESION ON SACRUM. PATIENT IS UNCERTAIN HOW IT DEVELOPED BUT SAID SHE ACQUIRED IT AT HOME. PRESENTS A RUPTURED BLISTER. PINK, NONGRANULATING TISSUE IN THE WOUND BED. NO PERIWOUND REDNESS, WARMTH, OR INDURATION. PATIENT INSTRUCTED ON NEED TO OFFLOAD WOUND TO PROMOTE HEALING. STATES SHE UNDERSTANDS.
[2021-01-25 20:15] VITALS: BP 128/74
[2021-01-26] VITALS: BP 126/62
[2021-01-26 04:00] VITALS: BP 136/99
--- NOTE | 2021-01-26 04:45 | NUR ---
PT AO X2-3 LYING IN BED AT TIME OF ASSESSMENT. SHE IS WEARING HIGH-FLOW NC WITH NON-REBREATHER ON TOP OF IT. SHE HOLDS MASK IN PLACE BUT FREQUENTLY TAKES IT DOWN BRINGING SAT <90 AND STAFF GOING IN TO REMIND HER TO KEEP IT ON. PT HAS CLARK TO DD WITH ADEQUATE OUTPUT. SHE HAS BEEN NSR ON TELEMETRY. SHE IS GETTING MORE ACTIVE IN THE BED THIS AM, SITTING UP WITH LEGS DANGLING TO FLOOR. PT WAS TAKEN OFF ISOLATION LAST NIGHT WITH HER INITIAL POSITIVE TEST BEING 12/22 AND THE TREATMENT SHE HAS RECEIVED. BED ALARM ON FOR SAFETY, CALL LIGHT WITHIN REACH
[2021-01-26 07:53] LABS: HEMATOCRIT 36.1 % (37.0-47.0); HEMOGLOBIN 12.1 gm/dL (12.0-15.0); MCH 33.2 pg (26.0-34.0); MCHC 33.5 g/dL (28.0-37.0); MCV 98.9 fL (80.0-100.0); MPV 8.1 fl. (7.2-11.1); RBC 3.65 mil/uL (4.20-5.00); RDW-CV 14.6 % (10.5-14.5); WBC 10.9 thou/uL (4.0-11.0)
[2021-01-26 08:00] VITALS: BP 147/69
[2021-01-26 08:09] LABS: CALCIUM 9.9 mg/dL (8.5-10.1); CREATININE 0.7 mg/dL (0.6-1.3); POTASSIUM 3.5 mmol/L (3.5-5.1)
[2021-01-26 12:00] VITALS: BP 170/85
--- NOTE | 2021-01-26 15:18 | NUR ---
Pt on 15L, continue to wean. Pt can come out of isolotation, she is day 28 from initial covid positive.
[2021-01-26 15:51] VITALS: BP 142/72
--- NOTE | 2021-01-26 16:14 | NUR ---
CROSSCUTTER TRACKING WITH NO CHANGE IN RHYTHM. 02 ON HEATED HF, ADDITIONAL 02 WITH NRB AT TIMES WHEN 02 DROPPING WITH ACTIVITY IN BED. INCONTINENT OF LARGE BM TODAY, SOPHIE CARE GIVEN. TOLERATING DIET. CONFUSED, FORGETFUL MOST OF SHIFT - PULLING AT 02, TAKING OFF ON AND OFF DURING SHIFT. SOA NOTED WITH ACTIVITY IN BED. HOB ELEVATED, CALL LIGHT WITHIN REACH. WILL MONITOR.
[2021-01-26 20:00] VITALS: BP 161/85
[2021-01-27 00:21] VITALS: BP 143/68
[2021-01-27 04:30] VITALS: BP 147/70
[2021-01-27 08:21] LABS: HEMOGLOBIN 12.2 gm/dL (12.0-15.0); MCH 33.4 pg (26.0-34.0); MCV 98.2 fL (80.0-100.0); MPV 8.4 fl. (7.2-11.1); RBC 3.66 mil/uL (4.20-5.00); RDW-CV 14.9 % (10.5-14.5); WBC 13.1 thou/uL (4.0-11.0)
[2021-01-27 08:24] LABS: CALCIUM 10.4 mg/dL (8.5-10.1); CREATININE 0.8 mg/dL (0.6-1.3)
[2021-01-27 09:03] VITALS: BP 141/70
[2021-01-27 12:00] VITALS: BP 123/59
--- NOTE | 2021-01-27 15:58 | NUR ---
Pt remains on 15L. Pt now a DNI/DNR.
[2021-01-27 16:23] VITALS: BP 156/65
[2021-01-27 20:00] VITALS: BP 153/78
[2021-01-28 00:34] VITALS: BP 127/67
[2021-01-28 04:54] VITALS: BP 146/81
[2021-01-28 05:17] LABS: ABSOLUTE EOSINOPHILS 0.5 thou/uL (0.0-0.7); ABSOLUTE MONOCYTES 0.3 thou/uL (0.0-1.2); ABSOLUTE NEUTROPHILS 8.5 thou/uL (1.6-8.1); BASOPHILS 0.1 %; EOSINOPHILS 4.5 %; HEMOGLOBIN 12.1 gm/dL (12.0-15.0); LYMPHOCYTES 9.5 %; MCH 33.4 pg (26.0-34.0); MCHC 33.6 g/dL (28.0-37.0); MCV 99.5 fL (80.0-100.0); MONOCYTES 2.6 %; MPV 8.3 fl. (7.2-11.1); NUCLEATED RBCS 0 /100WBC; PLATELET COUNT* 62 thou/uL (150-400); POLYS 83.3 %; RBC 3.62 mil/uL (4.20-5.00); RDW-CV 14.7 % (10.5-14.5); WBC 10.2 thou/uL (4.0-11.0)
[2021-01-28 05:27] LABS: ALBUMIN 3.7 g/dL (3.4-5.0); CALCIUM 10.1 mg/dL (8.5-10.1); CREATININE 0.7 mg/dL (0.6-1.3); MAGNESIUM 1.6 mg/dL (1.8-2.4); TOTAL BILIRUBIN 1.2 mg/dL (<0.1-1.0); TOTAL PROTEIN 6.4 g/dL (6.4-8.2)
[2021-01-28 08:15] VITALS: BP 130/60
[2021-01-28 12:00] VITALS: BP 129/62
--- NOTE | 2021-01-28 15:15 | NUR ---
Remains on 55L 100% fio2. Dr to discuss goals of care with sister today. Covid positive.
[2021-01-28 16:29] VITALS: BP 109/58
[2021-01-28 20:00] VITALS: BP 118/64
[2021-01-29 00:17] VITALS: BP 125/65
[2021-01-29 04:00] VITALS: BP 119/70
[2021-01-29 04:34] LABS: HEMATOCRIT 30.6 % (37.0-47.0); HEMOGLOBIN 10.4 gm/dL (12.0-15.0); MCH 33.7 pg (26.0-34.0); MCV 99.3 fL (80.0-100.0); MPV 8.5 fl. (7.2-11.1); RBC 3.08 mil/uL (4.20-5.00); RDW-CV 14.8 % (10.5-14.5); WBC 6.1 thou/uL (4.0-11.0)
[2021-01-29 04:51] LABS: CALCIUM 9.7 mg/dL (8.5-10.1); CREATININE 0.8 mg/dL (0.6-1.3); POTASSIUM 3.9 mmol/L (3.5-5.1)
--- NOTE | 2021-01-29 15:00 | NUR ---
Pt moved to 230. Remains on bipap, fio2 100%. Pt wants to continue aggressive care per family conversation with yesterday.
[2021-01-29 16:00] VITALS: BP 153/76
--- NOTE | 2021-01-29 18:35 | NUR ---
PATIENT ARRIVED TO UNIT FROM [facility] AT APPROX. 1000, DEPENDENT ON BIPAP. URINARY CATHETER IN PLACE, DEPENDENT TO DD, YELLOW URINE IN COLLECTION BAG. PATIENT HAS SMEAR OF BM TODAY. PT ATTEMPTED TO CLEAN PATIENT UP THIS AFTERNOON AND PATIENT BECAME EXTREMELY ANXIOUS, PULLING AT BIPAP MASK AND STRUGGLING TO BREATHE. OXYGEN SATURATIONS DROPPED QUICKLY AND RT WAS NOTIFIED. PATIENT MAXED OUT ON BIPAP, PRN ANXIETY MEDICATION ADMINISTERED AND DR. JENKINS PAGED. THIS NURE DISCUSSED POSSIBILITY OF COMFORT CARE FOR PATIENT-DR. JENKINS CONTACTED PATIENT'S SISTER, JESS, AND SHE WANTED TO COME SEE PATIENT BEFORE MAKING DECISION ON COMFORT CARE (PATIENT IS ALREADY A NO CODE). AND REPAIRER SCREEN CRUSHER GAVE PERMISSION FOR SISTER AND FRIEND TO BE HERE WITH PATIENT AT THE SAME TIME. AFTER SEEING PATIENT, SISTER DECIDED ON COMFORT CARE FOR PATIENT. DR. JENKINS NOTIFIED ONCE MORE, SPOKE WITH SISTER AND COMFORT CARE HAS BEEN ORDERED. PRN ANXIETY MEDICATION ADMINISTERED PRIOR TO RT REMOVING BIPAP AND PLACING O2@2L VIA NASAL CANNULA AT APPROX. 1739-4MG PRN MORPHINE ADMINISTERED AT APPROX. 1740 FOR AIR HUNGER. PATIENT HAS BEEN RESTING PEACEFULLY, WITH NO DISTRESS NOTED SINCE. PATIENT'S SISTER AND FRIEND CURRENTLY AT BEDSIDE.
[2021-01-29 20:00] VITALS: BP 130/69
--- NOTE | 2021-01-30 04:57 | NUR ---
PT ON COMFORT CARE. TURNING PRN COMFORT. ORAL CARE PROVIDED Q 30MIN TO 1HR. O2 AT 2 LITERS NC. O2 SATS INITALLY 35% NOW AROUND THE 50S. MORPHINE AND ATIVAN PRN FOR COMFORT. PT RESTING COMFORTABLY. NO THRASHING OR TRYING TO PULL AT THINGS. WATER FILTRATION TECHNICIAN TRACING ST. FAMILY AND FRIEND WENT HOME FOR THE NIGHT AT SHIFT CHGMauri CLARK TO JULIO DRAINING YELLOW.
[2021-01-30 07:35] VITALS: BP 56/32
--- NOTE | 2021-01-30 13:45 | NUR ---
PT PASSED AT 1303, FAMILY IN ROOM. PHYSICIANS NOTIFED. [facility] CALLED. HOME CALLED. PT BELONGINGS TAKEN WITH FAMILY. IV AND CLARK REMOVED. AWAITING HOME FOR FIREWORKS ASSEMBLY SUPERVISOR.
== END 2021-01-30 13:03 | DRG 177 ==
LOC: M.ERS 15:22 → M.ORTHSURG 16:20 → M.TBA-ER 16:20 → M.ORTHSURG 20:05 → M.ICU 01-08 21:25 → M.ORTHSURG 01-22 13:10 → M.2W 01-29 10:00
PROVIDERS: Family Medicine; Internal Medicine; Internal Medicine Critical Care Medicine; Pediatrics; ADMIT Internal Medicine; ATTEND Internal Medicine
PROC: XW033E5 Introduction of Remdesivir Anti-infective into Peripheral Vein, Percutaneous Approach, New Technology Group 5 (ICD-10-PCS; 2021-01-05)
PROC: B54NZZA Ultrasonography of Left Upper Extremity Veins, Guidance (ICD-10-PCS; principal; 2021-01-06)
PROC: 5A0945A Assistance with Respiratory Ventilation, 24-96 Consecutive Hours, High Flow/Velocity Cannula (ICD-10-PCS; principal; 2021-01-06)
PROC: 05HF33Z Insertion of Infusion Device into Left Cephalic Vein, Percutaneous Approach (ICD-10-PCS; principal; 2021-01-06)
PROC: XW033H5 Introduction of Tocilizumab into Peripheral Vein, Percutaneous Approach, New Technology Group 5 (ICD-10-PCS; principal; 2021-01-06)
PROC: 5A09457 Assistance with Respiratory Ventilation, 24-96 Consecutive Hours, Continuous Positive Airway Pressure (ICD-10-PCS; 2021-01-10)
PROC: 5A09357 Assistance with Respiratory Ventilation, Less than 24 Consecutive Hours, Continuous Positive Airway Pressure (ICD-10-PCS; 2021-01-12)
PROC: 5A0935A Assistance with Respiratory Ventilation, Less than 24 Consecutive Hours, High Flow/Velocity Cannula (ICD-10-PCS; 2021-01-12)
PROC: 5A09357 Assistance with Respiratory Ventilation, Less than 24 Consecutive Hours, Continuous Positive Airway Pressure (ICD-10-PCS; 2021-01-13)
PROC: 5A0935A Assistance with Respiratory Ventilation, Less than 24 Consecutive Hours, High Flow/Velocity Cannula (ICD-10-PCS; 2021-01-13)
PROC: 5A09357 Assistance with Respiratory Ventilation, Less than 24 Consecutive Hours, Continuous Positive Airway Pressure (ICD-10-PCS; 2021-01-14)
PROC: 5A0935A Assistance with Respiratory Ventilation, Less than 24 Consecutive Hours, High Flow/Velocity Cannula (ICD-10-PCS; 2021-01-15)
PROC: 5A09357 Assistance with Respiratory Ventilation, Less than 24 Consecutive Hours, Continuous Positive Airway Pressure (ICD-10-PCS; 2021-01-15)
PROC: 5A0935A Assistance with Respiratory Ventilation, Less than 24 Consecutive Hours, High Flow/Velocity Cannula (ICD-10-PCS; 2021-01-16)
PROC: 5A09357 Assistance with Respiratory Ventilation, Less than 24 Consecutive Hours, Continuous Positive Airway Pressure (ICD-10-PCS; 2021-01-16)
PROC: 5A09357 Assistance with Respiratory Ventilation, Less than 24 Consecutive Hours, Continuous Positive Airway Pressure (ICD-10-PCS; 2021-01-17)
PROC: 5A0935A Assistance with Respiratory Ventilation, Less than 24 Consecutive Hours, High Flow/Velocity Cannula (ICD-10-PCS; 2021-01-17)
PROC: 5A0935A Assistance with Respiratory Ventilation, Less than 24 Consecutive Hours, High Flow/Velocity Cannula (ICD-10-PCS; 2021-01-18)
PROC: 5A09357 Assistance with Respiratory Ventilation, Less than 24 Consecutive Hours, Continuous Positive Airway Pressure (ICD-10-PCS; 2021-01-19)
PROC: 5A0935A Assistance with Respiratory Ventilation, Less than 24 Consecutive Hours, High Flow/Velocity Cannula (ICD-10-PCS; 2021-01-19)
PROC: 5A09357 Assistance with Respiratory Ventilation, Less than 24 Consecutive Hours, Continuous Positive Airway Pressure (ICD-10-PCS; 2021-01-20)
PROC: 5A0935A Assistance with Respiratory Ventilation, Less than 24 Consecutive Hours, High Flow/Velocity Cannula (ICD-10-PCS; 2021-01-20)
PROC: 5A0935A Assistance with Respiratory Ventilation, Less than 24 Consecutive Hours, High Flow/Velocity Cannula (ICD-10-PCS; 2021-01-21)
PROC: 5A0935A Assistance with Respiratory Ventilation, Less than 24 Consecutive Hours, High Flow/Velocity Cannula (ICD-10-PCS; 2021-01-22)
PROC: 5A09357 Assistance with Respiratory Ventilation, Less than 24 Consecutive Hours, Continuous Positive Airway Pressure (ICD-10-PCS; 2021-01-22)
PROC: 5A0935A Assistance with Respiratory Ventilation, Less than 24 Consecutive Hours, High Flow/Velocity Cannula (ICD-10-PCS; 2021-01-23)
PROC: 5A09357 Assistance with Respiratory Ventilation, Less than 24 Consecutive Hours, Continuous Positive Airway Pressure (ICD-10-PCS; 2021-01-24)
PROC: 5A0935A Assistance with Respiratory Ventilation, Less than 24 Consecutive Hours, High Flow/Velocity Cannula (ICD-10-PCS; 2021-01-24)
PROC: 5A0935A Assistance with Respiratory Ventilation, Less than 24 Consecutive Hours, High Flow/Velocity Cannula (ICD-10-PCS; 2021-01-25)
PROC: 5A0935A Assistance with Respiratory Ventilation, Less than 24 Consecutive Hours, High Flow/Velocity Cannula (ICD-10-PCS; 2021-01-26)
PROC: 5A0935A Assistance with Respiratory Ventilation, Less than 24 Consecutive Hours, High Flow/Velocity Cannula (ICD-10-PCS; 2021-01-27)
PROC: 02HV33Z Insertion of Infusion Device into Superior Vena Cava, Percutaneous Approach (ICD-10-PCS; 2021-01-28)
PROC: 5A0935A Assistance with Respiratory Ventilation, Less than 24 Consecutive Hours, High Flow/Velocity Cannula (ICD-10-PCS; 2021-01-28)
PROC: 5A09357 Assistance with Respiratory Ventilation, Less than 24 Consecutive Hours, Continuous Positive Airway Pressure (ICD-10-PCS; 2021-01-28)
PROC: B548ZZA Ultrasonography of Superior Vena Cava, Guidance (ICD-10-PCS; 2021-01-28)
PROC: 5A09357 Assistance with Respiratory Ventilation, Less than 24 Consecutive Hours, Continuous Positive Airway Pressure (ICD-10-PCS; 2021-01-29)
DX: U07.1 COVID-19 (principal); J12.82 Pneumonia due to coronavirus disease 2019; G93.41 Metabolic encephalopathy; N17.0 Acute kidney failure with tubular necrosis; J80 Acute respiratory distress syndrome; R77.8 Other specified abnormalities of plasma proteins; R32 Unspecified urinary incontinence; F41.9 Anxiety disorder, unspecified; I10 Essential (primary) hypertension; E03.9 Hypothyroidism, unspecified; R41.0 Disorientation, unspecified; E83.42 Hypomagnesemia; R00.1 Bradycardia, unspecified; J98.2 Interstitial emphysema; Z66 Do not resuscitate; Z51.5 Encounter for palliative care; Z90.49 Acquired absence of other specified parts of digestive tract; Z79.899 Other long term (current) drug therapy